=== PATIENT | male | born 1980 | race Caucasian/White ===

== ENCOUNTER 2021-03-04 11:06 | Outpatient (REF) | payer BC, SELFPAY ==
--- NOTE | ~2021-03-04 | XR_ITS ---
EXAMINATION: XR FOOT, RIGHT CLINICAL INFORMATION: Pain COMPARISON: None TECHNIQUE: AP, lateral, and oblique views of the right foot. FINDINGS: Bone alignment is normal. No fracture or dislocation is seen. Joint spaces are normal. There is a small osteophyte at the Achilles tendon insertion to the calcaneus. XR/XR foot RT min 3V IMPRESSION: Small calcaneal osteophyte at the Achilles tendon insertion otherwise unremarkable exam.
[2021-03-04 13:56] LABS: MANUAL DIFF FLAG NO
[2021-03-04 14:03] LABS: Basophils Absolute Auto 0.1 X10*3/uL (0.0-0.2); Basophils Percent Auto 0.6 % (0-2); Eosinophils Absolute Auto 0.3 X10*3/uL (0.0-0.4); Eosinophils Percent Auto 3.4 % (0-4); Hematocrit 46.9 % (42-52); Hemoglobin 15.8 g/dl (14.0-18.0); Imm Gran Abs Auto 0.03 X10*3/uL (0.00-0.03); Imm Gran Pct Auto 0.4 % (0.0-0.4); Lymphocytes Absolute Auto 2.1 X10*3/uL (1.2-4.9); Lymphocytes Percent Auto 25.2 % (20-40); Mean Corpuscular HGB Conc 33.7 g/dl (31.0-36.0); Mean Corpuscular Hemoglobin 31.2 pg (27.0-33.0); Mean Corpuscular Volume 92.5 fL (80-98); Mean Platelet Volume 10.4 fL (9.4-12.4); Monocytes Absolute Auto 0.8 X10*3/uL (0.1-1.2); Monocytes Percent Auto 9.2 % (2-11); Neutrophils Absolute Auto 5.2 X10*3/uL (2.0-8.3); Neutrophils Percent Auto 61.2 % (45-73); Platelet Count 234 X10*3/uL (160-400); Red Blood Count 5.07 X10*6/uL (4.60-5.80); Red Cell Distribution Width 13.4 % (11.0-16.0); White Blood Count 8.5 X10*3/uL (4.8-10.8)
[2021-03-04 14:19] LABS: Anion Gap 13 (12-20); Blood Urea Nitrogen 12 mg/dL (9-16); Calcium 9.8 mg/dL (8.4-10.2); Carbon Dioxide 28 mmol/L (22-29); Chloride 102 mmol/L (96-108); Estimated Glomerular Filt Rate > 60; Glucose Random 85 mg/dL (60-115); Potassium 4.4 mmol/L (3.3-5.1); Sodium 139 mmol/L (135-145); Uric Acid 9.8 mg/dL (3.4-7.0)
[2021-03-04 15:14] LABS: Erythrocyte Sedimentation Rate 4 MM/HR (0-15)
== END 2021-03-04 11:07 | disposition home or self-care (01) ==
LOC: HO.HMGCX 11:06
PROVIDERS: PCP Internal Medicine; Visit Provider Nurse Practitioner Family
DX: M79.673 Pain in unspecified foot (principal); M79.89 Other specified soft tissue disorders; L53.9 Erythematous condition, unspecified
CPT/HCPCS: 36415; 73630; 80048; 84550; 85025; 85652

== ENCOUNTER 2023-05-20 08:13 | Outpatient (AMB) | payer BC, SELFPAY ==
[2023-05-20 08:34] VITALS: BP 148/90; PULSE 91; TEMP 36.4; O2SAT 98; BMI 33.1
--- NOTE | 2023-05-20 08:34 | AM.OFFWIN_ITS ---
Intake Vital Signs 05/20/23 08:34 Height 5 ft 11 in Weight 237 lb BMI 33.1 BP 148/90 H Blood Pressure Location Lt brachial Position Sitting Pulse 91 Pulse Source Pulse Oximeter Temp 97.5 F Temp Source Temporal Artery Scan Pulse Oximetry (%) 98 Oxygen Delivery Method Room Air Intake Visit Reasons: EP RT?Gout Intake Note: pt is here for c/o gout right foot Patient Tobacco Use Status: Current everyday Tobacco user Allergies No Known Allergies Allergy (Verified 05/20/23 08:37) Do you need a note to return to daycare/school/sports/work: Yes HPI EP RT?Gout HPI Details 42-year-old male patient presents today with possible gout right foot. Reports this is his 4th flare in the last year so. Symptoms started about 2 days ago. No injury or trauma to area. Reports tenderness and warmth on the top of right foot. Denies any fever or chills. States he always gets a flare in the same spot. [facility] Medical History Otitis media Family History Father Diabetes Mother No problems noted. Social History Patient Tobacco Use Status: Current everyday Tobacco user Review of Systems Const All systems reviewed & are unremarkable except as noted in HPI and below Physical Exam Vital Signs: Last Vital Signs Temp 97.5 F 05/20/23 08:34 Pulse 91 05/20/23 08:34 BP 148/90 H 05/20/23 08:34 Pulse Ox 98 05/20/23 08:34 Oxygen Delivery Method Room Air 05/20/23 08:34 BMI result Body Mass Index 33.1 Const General: cooperative and healthy appearing Resp Effort & Inspection: normal respiratory effort and able to speak in complete sentences Auscultation: clear to auscultation bilaterally Cardio Jugular venous distension: no JVD Palpation: normal PMI Rate: regular rate Rhythm: regular rhythm Skin General skin exam: no rashes or lesions noted Extrem Other: Top of right foot erythematous, tender to palpation, slight warmth to touch. General: Yes capillary refill normal and Yes no clubbing, cyanosis or edema Psych Appearance: grossly normal Mental Status: mental status grossly normal Speech and movement: Normal speech and movement present Assessment & Plan Assessment & Plan (1) Gout of right foot: Code(s): M10.9 - Gout, unspecified Qualifiers: Gout etiology: unspecified cause Chronicity: acute Qualified Code(s): M10.9 - Gout, unspecified Plan: Prednisone for gout flare of right foot. Reviewed indications, use, and possible side effects of this medication. Patient reports he has taken it previously and it has treated his gout flares effectively. May apply cool compresses as needed. Advised to return to the he does not improve with treatment. I will message his PCP Dr. Sanchez for possible start on gout prophylaxis given multiple flares over the last year. Patient agrees to plan. Medications: Refilled prednisone 40 mg (2 x 20 mg) PO DAILY 10 tabs 0RF 5 days M10.9 - Gout, unspecified Coding Level of Care Code Est Pt Level 3 (76470) Diagnoses Acute gout of right foot, unspecified cause M10.9 Gout etiology: unspecified cause Chronicity: acute
== END 2023-05-20 09:15 | disposition home or self-care (01) ==
PROVIDERS: PCP Internal Medicine; Visit Provider Nurse Practitioner Family
DX: M10.9 Gout, unspecified (principal)
CPT/HCPCS: 99213

== ENCOUNTER 2023-06-07 06:01 | Outpatient (REF) | payer BC, SELFPAY ==
[2023-06-07 12:06] LABS: MANUAL DIFF FLAG NO
[2023-06-07 12:13] LABS: Basophils Absolute Auto 0.1 X10*3/uL (0.0-0.2); Basophils Percent Auto 0.9 % (0-2); Eosinophils Absolute Auto 0.3 X10*3/uL (0.0-0.4); Eosinophils Percent Auto 5.1 % (0-4); Hematocrit 45.6 % (42.0-52.0); Hemoglobin 15.4 g/dl (14.0-18.0); Imm Gran Abs Auto 0.02 X10*3/uL (0.00-0.03); Imm Gran Pct Auto 0.3 % (0.0-0.4); Lymphocytes Percent Auto 46.3 % (20-40); Mean Corpuscular HGB Conc 33.8 g/dl (31.0-36.0); Mean Corpuscular Volume 94.6 fL (80.0-98.0); Mean Platelet Volume 10.5 fL (9.4-12.4); Monocytes Absolute Auto 0.5 X10*3/uL (0.1-1.2); Monocytes Percent Auto 7.9 % (2-11); Neutrophils Absolute Auto 2.5 x10*3/uL (2.0-8.3); Neutrophils Percent Auto 39.5 % (45-73); Platelet Count 241 X10*3/uL (160-400); Red Blood Count 4.82 X10*6/uL (4.60-5.80); Red Cell Distribution Width 12.8 % (11.0-16.0); White Blood Count 6.4 X10*3/uL (4.8-10.8)
[2023-06-07 12:40] LABS: Alanine Aminotransferase 45 U/L (0-40); Albumin Level 4.3 g/dL (3.5-5.0); Alkaline Phosphatase 76 U/L (39-117); Anion Gap 15 (12-20); Aspartate Amino Transferase 27 U/L (5-37); Bilirubin Total 0.2 mg/dL (0.0-1.0); Blood Urea Nitrogen 10 mg/dL (9-16); Calcium 9.6 mg/dL (8.4-10.2); Carbon Dioxide 25 mmol/L (22-29); Chloride 106 mmol/L (96-108); Cholesterol 231 mg/dL (<200); Estimated Glomerular Filt Rate > 60; Glucose Fasting 85 mg/dL (60-99); HDL Cholesterol 52 mg/dL (>40); LDL Cholesterol Calculated 134 mg/dL (<100); Potassium 3.8 mmol/L (3.3-5.1); Sodium 142 mmol/L (135-145); Total Protein 7.2 g/dL (6.5-8.0); Triglycerides 228 mg/dL (<150); Uric Acid 9.3 mg/dL (3.4-7.0)
== END 2023-06-07 06:02 | disposition home or self-care (01) ==
LOC: HO.HMGCLDS 06:01
PROVIDERS: PCP Internal Medicine; Visit Provider Internal Medicine
DX: Z00.00 Encounter for general adult medical examination without abnormal findings (principal); M10.9 Gout, unspecified
CPT/HCPCS: 36415; 80053; 80061; 84550; 85025

== ENCOUNTER 2023-06-09 09:08 | Outpatient (AMB) | payer BC, SELFPAY ==
[2023-06-09 09:26] VITALS: BP 126/76; PULSE 94; O2SAT 96; BMI 32.1
--- NOTE | 2023-06-09 09:26 | A.OFFPC_ITS ---
Vital Signs 06/09/23 09:26 Height 5 ft 11 in Weight 230 lb BMI 32.1 BP 126/76 Blood Pressure Location Lt brachial Position Sitting Pulse 94 Pulse Source Pulse Oximeter Pulse Oximetry (%) 96 Oxygen Delivery Method Room Air Intake Visit Reasons: PE Intake Note: Pt is here today for PE. Allergies No Known Allergies Allergy (Verified 06/09/23 09:31) Medication List - Last Reconciled 06/09/23 by Prisca Sanchez MD No Known Home Meds Tobacco use date assessed: 06/09/23 Dental Screening Dental Screen Date: 06/09/23 Did you have a dental visit in the last 12 months?: Yes Did you have a dental problem in the last 6 months where you did not have access to dental care?: No Was dental information given to patient?: Patient has dentist HPI PE HPI Details Patient presents for physical. He complains of recurrent episodes of gout attacks for the last few months. He was treated with prednisone. Patient reports strong family history of gout. [facility] Medical History Otitis media Family History Father Diabetes Mother No problems noted. Social History (Updated 06/09/23 @ 10:26 by Prisca Sanchez MD) Household Members Other:: , 2 daughters 18, 17, works for [employer] company Housing: Apartment Patient Tobacco Use Status: Current everyday Tobacco user Cigarettes Per Day: 20 e-Cigarette/Vaping Use: Never Used Current occupational status: employed Cognitive needs: No Hearing needs: No Vision needs: Yes Questionnaire PHQ-9 Over the last 2 weeks, how often have you been bothered by any of the following problems? 1. Little interest or pleasure in doing things: not at all 2. Feeling down, depressed, or hopeless: not at all 3. Trouble falling or staying asleep, or sleeping too much: not at all 4. Feeling tired or having little energy: not at all 5. Poor appetite or overeating: not at all 6. Feeling bad about yourself - or that you are a failure or have let yourself or your family down: not at all 7. Trouble concentrating on things, such as reading the newspaper or watching television: not at all 8. Moving or speaking so slowly that other people could have noticed. Or the opposite - being so fidgety or restless that you have been moving around a lot more than usual: not at all 9. Thoughts that you would be better off or of hurting yourself in some way: not at all Total score: 0 Depression Screening Interpretation: Negative Depression Screening Done: Yes Source: Developed by Drs. Jose Ramon Pinon, Daphne Dixon, Trever Han and colleagues, with an educational shakila from [employer]. Thrive Questionnaire Date Thrive assessed: 06/09/23 I am a: Patient What is your living situation today?: I have a steady place to live Within the past 12 months, did the food you bought not last and you didn't have the money to get more?: Never true Within the past 12 months, did you worry whether your food would run out before you got money to buy more?: Never true Do you have trouble paying for medicines?: No Do you have trouble getting transportation to medical appointments?: No Do you have trouble paying your heating and electricity bill?: No Do you have trouble taking care of your child, family member or friend?: No Do you have trouble with day-to-day activities such as bathing, preparing meals, shopping, managing finances, etc.?: No Are you currently unemployed and looking for a job?: No Are you interested in more education?: No Please select the resources that you would like help with: None Currently or been in a relationship where the following occur: no concerns reported AUDIT C Alcohol Use Questionnaire (AUDIT-C) 1. How often do you have a drink containing alcohol?: 4 or more times a week 2. How many drinks containing alcohol do you have on a typical day when you are drinking?: 1 or 2 3. How often do you have six or more drinks on one occasion?: Never Total Score: 4 OTF-7 AMB Questionnaire OTF-7 Date OTF - 7 assessed: 06/09/23 Feeling nervous, anxious, or on edge: 0 = Not at all Not being able to stop or control worryin = Not at all Worrying too much about different things: 0 = Not at all Trouble relaxin = Not at all Being so restless that it is hard to sit still: 0 = Not at all Becoming easily annoyed or irritable: 0 = Not at all Feeling afraid as if something awful might happen: 0 = Not at all Total OTF-7 score (0-4 normal; 5-9 mild; 10-14 moderate; 15-21 severe): 0 Source: Developed by Drs. Jose Ramon Pinon, Daphne Dixon, Trever Han and colleagues, with an educational shakila from [employer]. Review of Systems Const All systems reviewed & are unremarkable except as noted in HPI and below Reports no additional complaints Eyes Reports no additional complaints ENT Reports no additional complaints Card Reports no additional complaints Resp Reports no additional complaints GI Reports no additional complaints Reports no additional complaints Physical exam (Primary Care) Vital Signs: Last Vital Signs Pulse 94 06/09/23 09:26 BP 126/76 06/09/23 09:26 Pulse Ox 96 06/09/23 09:26 Oxygen Delivery Method Room Air 06/09/23 09:26 BMI result Body Mass Index 32.1 Tobacco/Smoking Status: Tobacco use Status Tobacco use date assessed 06/09/23 06/09/23 09:34 Patient Tobacco Use Status Current everyday Tobacco 06/09/23 09:34 e-Cigarette/Vaping Use Never Used 06/09/23 09:34 PHQ-9: PHQ-9 Score PHQ-9: Total score 0 06/09/23 09:35 Depression Screening Interpretation: Negative Thrive Assessment: Date of Thrive Assessment Date Thrive assessed 06/09/23 06/09/23 09:35 Currently or been in a relationship where the following occur: no concerns reported Const General: no acute distress HENMT Ears: hearing grossly normal bilaterally Face and sinus: Yes normal facial exam Mouth: Normal oral and palatal mucosa present Throat: Yes posterior oropharynx normal Eyes General: appearance normal, both eyes and all related structures Neck Neck: Yes no lymphadenopathy and Yes supple Resp Effort & Inspection: normal respiratory effort Auscultation: clear to auscultation bilaterally Cardio Rhythm: regular rhythm Heart sounds: S1 normal heart sound present and S2 normal heart sound present GI Inspection: Yes normal to inspection Palpation (GI): Soft to palpation Percussion: Yes normal to percussion Auscultation: normal bowel sounds Assessment and Plan Assessment & Plan (1) Gout: Code(s): M10.9 - Gout, unspecified Plan: For recurrent gout and hyperuricemia allopurinol to 200 mg daily will be started with colchicine 0.6 mg daily for the 1st month as a prophylaxis. Low purine diet discussed with the patient. He was advised to take colchicine 0.6 mg q.i.d. for acute gout attack (2) Annual physical exam: Code(s): Z00.00 - Encounter for general adult medical examination without abnormal findings Plan: Well-balanced diet regular physical activity discussed with the patient. Tobacco quitting discussed (3) Hyperlipemia: Code(s): E78.5 - Hyperlipidemia, unspecified Plan: Low-cholesterol diet discussed with the patient return in 4 months with a fasting labs before including lipid profile Orders: Orders Lipid Panel 4 Months E78.5 - Hyperlipidemia, unspecified, M10.9 - Gout, unspecified, Z00.00 - Encounter for general adult medical examination without abnormal findings Comprehensive [place]. Panel Fast 4 Months E78.5 - Hyperlipidemia, unspecified, M10.9 - Gout, unspecified, Z00.00 - Encounter for general adult medical examination without abnormal findings Uric Acid 4 Months M10.9 - Gout, unspecified Medications: New allopurinol 200 mg PO DAILY 90 tabs 1RF colchicine (gout) 0.6 mg PO QID PRN 60 tabs 4RF gout attack Coding Level of Care Code Est Pt Prev Care 40-64y(03691) Diagnoses Gout M10.9 Annual physical exam Z00.00 Hyperlipemia E78.5
== END 2023-06-09 10:29 | disposition home or self-care (01) ==
PROVIDERS: PCP Internal Medicine; Visit Provider Internal Medicine
DX: M10.9 Gout, unspecified (principal); Z00.00 Encounter for general adult medical examination without abnormal findings; E78.5 Hyperlipidemia, unspecified
CPT/HCPCS: 99396

== ENCOUNTER 2023-06-29 08:07 | Outpatient (AMB) | payer BC, SELFPAY ==
[2023-06-29 08:08] VITALS: BP 122/78; PULSE 102; TEMP 36.9; O2SAT 98; BMI 31.2
--- NOTE | 2023-06-29 08:08 | MHC.OFFWIV ---
Intake Vital Signs 06/29/23 08:08 Height 5 ft 11 in Weight 224 lb BMI 31.2 BP 122/78 Blood Pressure Location Rt brachial Position Sitting Pulse 102 H Pulse Source Pulse Oximeter Temp 98.4 F Temp Source Temporal Artery Scan Pulse Oximetry (%) 98 Oxygen Delivery Method Room Air Intake Visit Reasons: EP stuffy nose/body aches masked in lobby Intake Note: pt is here for c/o stuffy nose, body aches Patient Tobacco Use Status: Current everyday Tobacco user Allergies No Known Allergies Allergy (Verified 06/29/23 08:33) Medication List - Last Reconciled 06/29/23 by Michael Brito MD allopurinol 200 mg PO DAILY colchicine (gout) 0.6 mg PO QID PRN Do you need a note to return to daycare/school/sports/work: Yes HPI EP stuffy nose/body aches masked in lobby HPI Details Patient presents for a sick visit. Reporting symptoms of sinus congestion, sore throat and difficulty swallowing. Low-grade fever. No family member is sick. No recent travel. Patient reports symptoms of malaise and fatigue. [facility] Medical History Otitis media Family History Father Diabetes Mother No problems noted. Social History (Updated 06/09/23 @ 10:26 by Prisca Sanchez MD) Household Members Other:: , 2 daughters 18, 17, works for [employer] company Housing: Apartment Patient Tobacco Use Status: Current everyday Tobacco user Cigarettes Per Day: 20 e-Cigarette/Vaping Use: Never Used Current occupational status: employed Cognitive needs: No Hearing needs: No Vision needs: Yes Physical Exam Vital Signs: Last Vital Signs Temp 98.4 F 06/29/23 08:08 Pulse 102 H 06/29/23 08:08 BP 122/78 06/29/23 08:08 Pulse Ox 98 06/29/23 08:08 Oxygen Delivery Method Room Air 06/29/23 08:08 BMI result Body Mass Index 31.2 Const General: cooperative and healthy appearing Nutritional Appearance: well nourished Orientation/consciousness: patient oriented x3 Limitations: no limitations HEENT Head: Yes normal to inspection Eyes General: appearance normal, both eyes and all related structures Neck Neck: Yes normal visual inspection Chest Chest palpation & inspection: normal palpation of entire chest wall Resp Effort & Inspection: normal respiratory effort Neuro General: patient oriented x3 Assessment & Plan Assessment & Plan (1) Upper respiratory tract infection: Code(s): J06.9 - Acute upper respiratory infection, unspecified Plan: Antibiotics ordered. Increase fluid intake. Tylenol for aches and pains. If symptoms worsen, follow-up here for a recheck. Coding Level of Care Code Est Pt Level 3 (38999) Diagnoses Upper respiratory tract infection J06.9
== END 2023-06-29 08:42 | disposition home or self-care (01) ==
PROVIDERS: PCP Internal Medicine; Visit Provider Internal Medicine
DX: J06.9 Acute upper respiratory infection, unspecified (principal)
CPT/HCPCS: 99213

== ENCOUNTER 2023-06-29 09:34 | Outpatient (REF) | payer BC, SELFPAY ==
[2023-06-29 15:04] LABS: Influenza A PCR NEGATIVE (Negative); Influenza B PCR NEGATIVE (Negative); Resp Syncy Virus RNA Qual PCR NEGATIVE (Negative); SARS COV2 PCR INHOUSE NEGATIVE (Negative)
== END 2023-06-29 09:35 | disposition home or self-care (01) ==
LOC: HO.LAB 09:34
PROVIDERS: Visit Provider Internal Medicine
DX: Z11.52 Encounter for screening for COVID-19 (principal); Z20.822 Contact with and (suspected) exposure to COVID-19; R43.9 Unspecified disturbances of smell and taste
CPT/HCPCS: 0241U

== ENCOUNTER 2023-08-21 09:12 | Outpatient (AMB) | payer BC, SELFPAY ==
--- NOTE | 2023-08-21 10:02 | AM.OFFWIN_ITS ---
Intake Vital Signs 08/21/23 10:05 Height 5 ft 11 in Weight 230 lb BMI 32.1 BP 140/98 H Blood Pressure Location Rt brachial Position Sitting Pulse 86 Pulse Source Pulse Oximeter Pulse Oximetry (%) 97 Oxygen Delivery Method Room Air Intake Visit Reasons: EP gout RT foot Intake Note: Pain here for gout of right foot which started and has been taking aleeve and icing which does not help. He states he gets every 3-4 months. Patient Tobacco Use Status: Current everyday Tobacco user Allergies No Known Allergies Allergy (Verified 08/28/23 10:47) Do you need a note to return to daycare/school/sports/work: Yes HPI EP gout RT foot HPI Details Patient is a 43-year-old male comes to the walk-in clinic complaining of ain here for gout of right foot which started and has been taking alieve and icing which does not help. His flare-ups have been more recurrent recently, and this is his 5th within the last year or so. He is going on 3 days, with only minimal relief with [id number] anti-inflammatories. He denies acute injury or trauma, although he states that he is on his feet repetitively with his work duties at a [employer]. His flare-ups always recur on the right anterior midfoot, and are severe today in regards to swelling per patient. He denies fever or chills, malaise or myalgias, weakness, or other symptoms of infection or systemic symptoms. [facility] Medical History Otitis media Family History Father Diabetes Mother No problems noted. Social History Household Members Other:: , 2 daughters 18, 17, works for [employer] Housing: Apartment Patient Tobacco Use Status: Current everyday Tobacco user Cigarettes Per Day: 20 e-Cigarette/Vaping Use: Never Used Current occupational status: employed Cognitive needs: No Hearing needs: No Vision needs: Yes Review of Systems Const All systems reviewed & are unremarkable except as noted in HPI and below Physical Exam Vital Signs: Last Vital Signs Pulse 86 08/21/23 10:05 BP 140/98 H 08/21/23 10:05 Pulse Ox 97 08/21/23 10:05 Oxygen Delivery Method Room Air 08/21/23 10:05 BMI result Body Mass Index 32.1 Const General: cooperative, healthy appearing, no acute distress, alert, awake, Physically active, in distress and well groomed; No comfortable, anxious, diaphoretic, ill appearing, intoxicated appearing, poor hygiene or tired appearing Nutritional Appearance: average body habitus Orientation/consciousness: patient oriented x3 Limitations: no limitations Resp Effort & Inspection: normal respiratory effort Cardio Rate: regular rate Neuro General: patient oriented x3 Extrem Other: Tenderness, mild edema to the right midfoot, with no appreciable warmth or erythema. No induration or fluctuance. He has limited ROM due to the pain, and mildly antalgic gait. Psych Appearance: grossly normal Mental Status: mental status grossly normal Speech and movement: Normal speech and movement present Affect: normal affect Attitude: cooperative Thought process: Normal thought process present Insight: Good insight present (Psych) Judgement: Good judgement present (Psych) Assessment & Plan Assessment & Plan (1) Gout attack: Code(s): M10.9 - Gout, unspecified Qualifiers: Gout site: foot Gout etiology: unspecified cause Laterality: left Qualified Code(s): M10.9 - Gout, unspecified Plan 43 year old male with diagnosed gout having an acute goute flare up to the right foot. No septic joint features other than edema to the joint. We discussed factors that provoke gout flares, and he is aware that alcohol consumption as well as heavy protein/meat consumption will flare-up his symptoms. He states that he is trying to do better . He has not been able to start a prophylaxis for this, and his appointment with his PCP is not until October 07. His uric acid level is not been checked since May of last year, and was at 9.3 at that time. He has not been able to lower it with minimal lifestyle (diet modification) changes. I will start him on a course of prednisone, which has resolved his symptoms in the past, and I will start him on allopurinol today. We discussed that he should get his uric acid level checked just prior to his PCP appointment, and have his labs checked. He already has order in the system. He knows to follow up sooner if his symptoms worsen, including specifically increased pain and edema or redness or warmth starting to the affected area, other infectious symptoms of fever chills, weakness, dizziness, nausea vomiting, or other worrisome symptoms. He knows to go to the emergency department if that is the case. Medications: New allopurinol 100 mg PO DAILY 30 tabs 1RF prednisone 40 mg (2 x 20 mg) PO DAILY 10 tabs 0RF 5 days Coding Level of Care Code Est Pt Level 4 (33106) Diagnoses Acute gout of left foot, unspecified cause M10.9 Gout site: foot Gout etiology: unspecified cause Laterality: left
[2023-08-21 10:05] VITALS: BP 140/98; PULSE 86; O2SAT 97; BMI 32.1
== END 2023-08-21 11:02 | disposition home or self-care (01) ==
PROVIDERS: PCP Internal Medicine; Visit Provider Physician Assistant Medical
DX: M10.9 Gout, unspecified (principal)
CPT/HCPCS: 99214

== ENCOUNTER 2023-08-28 09:15 | Outpatient (AMB) | payer BC, SELFPAY ==
--- NOTE | 2023-08-28 10:06 | AM.OFFWIN_ITS ---
Intake Vital Signs 08/28/23 10:16 Height 5 ft 11 in Weight 230 lb BMI 32.1 BP 130/80 Blood Pressure Location Rt brachial Position Sitting Pulse 82 Pulse Source Pulse Oximeter Temp 98.0 F Temp Source Oral Pulse Oximetry (%) 98 Oxygen Delivery Method Room Air Intake Visit Reasons: EST/gout right leg Intake Note: pt is here for c.o gout on right leg, was seen in walk in clinic last week and medications hasnt helped Patient Tobacco Use Status: Current everyday Tobacco user Allergies No Known Allergies Allergy (Verified 08/28/23 10:47) Medication List - Last Reconciled 08/28/23 by Yamileth Carlisle CNP allopurinol 100 mg PO DAILY Do you need a note to return to daycare/school/sports/work: Yes HPI HPI Comments History of Present Illness Details 43-year-old male presents to walk-in [facility] for complaint of pain right foot, was treated for gout last week for his 5th time with Allupurinol and Prednisone with no relief. He also is c/o right knee pain, swelling and erythema. He continues to drink alcohol but endorses I am done now, my and I know I can no longer drink He has completed his full dose of Prednisone, and has only taken 2 days of his Allupurinol RX. He has had no reported relief of pain or swelling of left anterior midfoot, and now has new onset erythema, swelling and pain of his right knee. He works for a [employer] service, and denies injury, trauma, fever, chills, weakness, dizziness, CP, SOB, nausea, changes in bowels or bladder. [facility] Medical History Otitis media Family History Father Diabetes Mother No problems noted. Social History Household Members Other:: , 2 daughters 18, 17, works for [employer] company Housing: Apartment Patient Tobacco Use Status: Current everyday Tobacco user Cigarettes Per Day: 20 e-Cigarette/Vaping Use: Never Used Current occupational status: employed Cognitive needs: No Hearing needs: No Vision needs: Yes Review of Systems Const All systems reviewed & are unremarkable except as noted in HPI and below Physical Exam Vital Signs: Last Vital Signs Temp 98.0 F 08/28/23 10:16 Pulse 82 08/28/23 10:16 BP 130/80 08/28/23 10:16 Pulse Ox 98 08/28/23 10:16 Oxygen Delivery Method Room Air 08/28/23 10:16 BMI result Body Mass Index 32.1 Const General: healthy appearing and well developed Orientation/consciousness: patient oriented x3 Limitations: no limitations Resp Effort & Inspection: normal respiratory effort, no cough, no respiratory distress and not tachypneic Auscultation: clear to auscultation bilaterally Cardio Rate: regular rate Rhythm: regular rhythm Peripheral pulses: Peripheral pulses 2+ throughout Neuro General: patient oriented x3, gait normal, moves all extremities and no focal motor deficits Extrem Right lower extremity: normal capillary refill, knee (moderate erythema, +1 edema, tender to palpitation, slight warmth to touch) and foot (Right mid anterior foot, mild erythema, tender and slight warmth to touch); no cyanosis Psych Mental Status: mental status grossly normal Speech and movement: Clear speech present Affect: normal affect Attitude: cooperative Assessment & Plan Assessment & Plan (1) Chronic gout of right foot: Code(s): M1A.0710 - Idiopathic chronic gout, right ankle and foot, without tophus (tophi) Qualifiers: Gout etiology: other secondary cause Presence of tophus: without tophus Qualified Code(s): M1A.4710 - Other secondary chronic gout, right ankle and foot, without tophus (tophi) Plan: -- Will restart Prednisone for gout flare of right foot, and possible right knee. Reviewed indications, use, and possible side effects of this medication. Patient reports he has taken it previously and it has treated his gout flares effectively. May apply cool compresses as needed. -- Will discontinue allupurinol and start Cochicine; we discussed the risks of Colchicine in patients at risk for hepatic or renal impairment especially with hx of AUD, review of his most recent CMP from 06/07/23 indicate Uric Acid level of 9.3 significantly elevated, LFT's; ALT slightly elevated at 45, AST wnl at 27, and BUN/Creat wnl at 10-0.83, with Normal GFR of > 60. At this point the benefits of adding Colchicine outweigh the risks, will add Cochicine, and encouraged patient to abstain alcohol use, and f/u with PCP. -- We discussed factors that provoke gout flares, and he is aware that alcohol consumption as well as heavy protein/meat consumption will flare-up his symptoms. He states that he is trying to do better. He has not been able to start a prophylaxis for this, and his appointment with his PCP is not until October 07. His uric acid level is not been checked since May of 2023, and was at 9.3. He has not been able to reduce his uric acid level with is minimal diet/lifestyle changes. So I will start him on Prednisone, and Colchicine today, and we discussed that he should get his uric acid level checked, and his Chem panel checked just prior to his PCP appointment. He already has order in the system. -- He knows to follow up sooner if his symptoms worsen, including specifically infectious symptoms of fever chills, weakness, dizziness, nausea vomiting, or other significant associated symptoms. (2) Acute gout of right knee: Code(s): M10.9 - Gout, unspecified Qualifiers: Gout etiology: unspecified cause Qualified Code(s): M10.9 - Gout, unspecified Plan: -- Will restart Prednisone for gout flare of right foot, and possible right knee. Reviewed indications, use, and possible side effects of this medication. Patient reports he has taken it previously and it has treated his gout flares effectively. May apply cool compresses as needed. -- Will discontinue allupurinol and start Cochicine; we discussed the risks of Colchicine in patients at risk with hepatic or renal impairment especially with hx of AUD, review of his most recent CMP from 06/07/23 indicate Uric Acid level of 9.3 significantly elevated, LFT's, ALT slightly elevated at 45, AST wnl at 27, and BUN/Creat wnl at 10-0.83, with Normal GFR of > 60. At this point the benefits of adding Colchicine outweigh the risks, will add Cochicine, and encouraged to abstain alcohol use, and f/u with PCP. -- We discussed factors that provoke gout flares, and he is aware that alcohol consumption as well as heavy protein/meat consumption will flare-up his symptoms. He states that he is trying to do better. He has not been able to start a prophylaxis for this, and his appointment with his PCP is not until October 07. His uric acid level is not been checked since May of 2023, and was at 9.3. He has not been able to reduce his uric acid level with is minimal diet/lifestyle changes. So I will start him on Prednisone, and Colchicine today, and we discussed that he should get his uric acid level checked, and his Chem panel checked just prior to his PCP appointment. He already has order in the system. -- He knows to follow up sooner if his symptoms worsen, including specifically infectious symptoms of fever chills, weakness, dizziness, nausea vomiting, or other significant associated symptoms. 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
[2023-08-28 10:16] VITALS: BP 130/80; PULSE 82; TEMP 36.7; O2SAT 98; BMI 32.1
== END 2023-08-28 11:06 | disposition home or self-care (01) ==
PROVIDERS: PCP Internal Medicine; Visit Provider Nurse Practitioner Acute Care
DX: M1A.4710 Other secondary chronic gout, right ankle and foot, without tophus (tophi) (principal)
CPT/HCPCS: 99214

== ENCOUNTER 2023-10-08 07:27 | Outpatient (REF) | payer BC, SELFPAY ==
[2023-10-08 11:42] LABS: Alanine Aminotransferase 31 U/L (0-40); Albumin Level 4.4 g/dL (3.5-5.0); Alkaline Phosphatase 77 U/L (39-117); Anion Gap 13 (12-20); Aspartate Amino Transferase 26 U/L (5-37); Bilirubin Total 0.5 mg/dL (0.0-1.0); Blood Urea Nitrogen 12 mg/dL (9-16); Carbon Dioxide 25 mmol/L (22-29); Chloride 109 mmol/L (96-108); Cholesterol 209 mg/dL (<200); Estimated Glomerular Filt Rate > 60; Glucose Fasting 89 mg/dL (60-99); HDL Cholesterol 55 mg/dL (>40); LDL Cholesterol Calculated 141 mg/dL (<100); Potassium 3.9 mmol/L (3.3-5.1); Sodium 143 mmol/L (135-145); Total Protein 7.2 g/dL (6.5-8.0); Triglycerides 69 mg/dL (<150); Uric Acid 8.1 mg/dL (3.4-7.0)
== END 2023-10-08 07:28 | disposition home or self-care (01) ==
LOC: HO.HMGCLDS 07:27
PROVIDERS: PCP Internal Medicine; Visit Provider Internal Medicine
DX: Z00.00 Encounter for general adult medical examination without abnormal findings (principal); M10.9 Gout, unspecified; E78.5 Hyperlipidemia, unspecified
CPT/HCPCS: 36415; 80053; 80061; 84550

== ENCOUNTER 2024-02-28 08:23 | Outpatient (AMB) | payer OTHER, SELFPAY ==
--- NOTE | 2024-02-28 08:32 | AM.OFFWIN_ITS ---
Intake Vital Signs 02/28/24 08:33 Height 5 ft 11 in Weight 220 lb BMI 30.7 BP 164/108 H Blood Pressure Location Rt brachial Position Sitting Pulse 99 Pulse Source Pulse Oximeter Temp 98.5 F Temp Source Oral Pulse Oximetry (%) 98 Oxygen Delivery Method Room Air Intake Visit Reasons: EP LT Foot gout Intake Note: pt here c/o LT foot gout. Started Wednesday. Patient Tobacco Use Status: Current everyday Tobacco user Allergies No Known Allergies Allergy (Verified 02/28/24 08:59) Medication List - Last Reconciled 02/28/24 by Michael Brito MD No Known Home Meds Do you need a note to return to daycare/school/sports/work: Yes HPI EP LT Foot gout HPI Details 43 yr old male presents to the office fo r a sick visit. Patient is complaining of left foot pain for the past few days. He has been bin ging on alcohol and admits to have a poor diet. Pain is predominantly in the fore foot and ankle. Progressively getting worse. Using a crutch to walk. [facility] Medical History Otitis media Family History Father Diabetes Mother No problems noted. Social History Household Members Other:: , 2 daughters 18, 17, works for [employer] company Housing: Apartment Patient Tobacco Use Status: Current everyday Tobacco user Cigarettes Per Day: 20 e-Cigarette/Vaping Use: Never Used Current occupational status: employed Cognitive needs: No Hearing needs: No Vision needs: Yes Physical Exam Vital Signs: Last Vital Signs Temp 98.5 F 02/28/24 08:33 Pulse 99 02/28/24 08:33 BP 164/108 H 02/28/24 08:33 Pulse Ox 98 02/28/24 08:33 Oxygen Delivery Method Room Air 02/28/24 08:33 BMI result Body Mass Index 30.7 Extrem Other: Left foot: Swelling over the ankle, and dorsum of the foot. Increased warmth. Marked tenderness on palpation. Assessment & Plan Assessment & Plan (1) Gout: Code(s): M10.9 - Gout, unspecified Qualifiers: Gout site: foot Encounter type: subsequent encounter Laterality: right Presence of tophus: without tophus Plan: Indomethacin for ten days. 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 He will pursue this with the PCP. Coding Level of Care Code Est Pt Level 3 (40803) Diagnoses Gout M10.9 Gout site: foot Encounter type: subsequent encounter Laterality: right Presence of tophus: without tophus
[2024-02-28 08:33] VITALS: BP 164/108; PULSE 99; TEMP 36.9; O2SAT 98; BMI 30.7
== END 2024-02-28 09:28 | disposition home or self-care (01) ==
PROVIDERS: PCP Internal Medicine; Visit Provider Internal Medicine
DX: M10.9 Gout, unspecified (principal)
CPT/HCPCS: 99213

== ENCOUNTER 2024-12-28 08:00 | Outpatient (AMB) | payer OTHER, SELFPAY ==
--- NOTE | 2024-12-28 08:03 | MHC.OFFWIV ---
Intake Vital Signs 12/28/24 08:08 Height 5 ft 11 in Weight 234 lb BMI 32.6 BP 140/80 H Blood Pressure Location Rt brachial Position Sitting Pulse 101 H Pulse Source Pulse Oximeter Pulse Oximetry (%) 98 Oxygen Delivery Method Room Air Intake Visit Reasons: EP Gout RT foot Intake Note: Patient here for right foot gout that started Wednesday morning. Patient Tobacco Use Status: Current everyday Tobacco user Allergies No Known Allergies Allergy (Verified 12/28/24 08:10) Do you need a note to return to daycare/school/sports/work: Yes HPI HPI Comments History of Present Illness Details 44 y/o Male patient who presents to the walk in clinic with c/o Right Foot pain and swelling since Wednesday. H/o Chronic Gout related to drinking and Poor food choices. He does endorse poor eating choices and binge drinking. [facility] Medical History Otitis media Family History Father Diabetes Mother No problems noted. Social History Household Members Other:: , 2 daughters 18, 17, works for [employer] company Housing: Apartment Patient Tobacco Use Status: Current everyday Tobacco user Cigarettes Per Day: 20 e-Cigarette/Vaping Use: Never Used Current occupational status: employed Cognitive needs: No Hearing needs: No Vision needs: Yes Review of Systems Const All systems reviewed & are unremarkable except as noted in HPI and below Physical Exam Vital Signs: Last Vital Signs Pulse 101 H 12/28/24 08:08 BP 140/80 H 12/28/24 08:08 Pulse Ox 98 12/28/24 08:08 Oxygen Delivery Method Room Air 12/28/24 08:08 BMI result Body Mass Index 32.6 Const General: no acute distress and poor hygiene; No comfortable Nutritional Appearance: overweight Orientation/consciousness: patient oriented x3 Neuro General: patient oriented x3, gait normal and moves all extremities Extrem Right lower extremity: ankle Details: swelling Details: diffusely, edema Details: non-pitting and normal ROM and foot Details: tenderness, toes with normal ROM and edema (The whole foot and Ankle) Assessment & Plan Assessment & Plan (1) Chronic gout of right foot: Code(s): M1A.0710 - Idiopathic chronic gout, right ankle and foot, without tophus (tophi) Qualifiers: Gout etiology: other secondary cause Presence of tophus: without tophus Qualified Code(s): M1A.4710 - Other secondary chronic gout, right ankle and foot, without tophus (tophi) Plan: Ordered Indomethacin Discussed briefly Sobriety (declined help). F/U with PCP. Medications: Refilled indomethacin administer with food or milk 50 mg PO BID 30 caps 1RF Coding Level of Care Code Est Pt Level 4 (88016) Diagnoses Other secondary chronic gout of right foot without tophus M1A.4710 Gout etiology: other secondary cause Presence of tophus: without tophus Time Spent (min) 20
[2024-12-28 08:08] VITALS: BP 140/80; PULSE 101; O2SAT 98; BMI 32.6
== END 2024-12-28 08:18 | disposition home or self-care (01) ==
PROVIDERS: PCP Internal Medicine; Visit Provider Nurse Practitioner Family
DX: M1A.4710 Other secondary chronic gout, right ankle and foot, without tophus (tophi) (principal)

== ENCOUNTER → 2024-12-28 08:00 | Outpatient (BNVA) | payer OTHER, SELFPAY | PROVIDERS: PCP Internal Medicine; Visit Provider Nurse Practitioner Family ==

== ENCOUNTER 2025-01-31 14:01 | Outpatient (AMB) | payer OTHER, SELFPAY ==
[2025-01-31 14:03] VITALS: BP 122/80; PULSE 108; TEMP 36.8; O2SAT 98; BMI 32.8
--- NOTE | 2025-01-31 14:03 | MHC.PC.OV ---
Vital Signs 01/31/25 14:03 Height 5 ft 11 in Weight 235 lb BMI 32.8 BP 122/80 Blood Pressure Location Rt brachial Position Sitting Pulse 108 H Pulse Source Pulse Oximeter Temp 98.2 F Temp Source Oral Pulse Oximetry (%) 98 Oxygen Delivery Method Room Air Intake Visit Reasons: Followup gout, r/s from 01/18 Intake Note: Pt is here today for a follow up visit on gout. Allergies No Known Allergies Allergy (Verified 01/31/25 14:06) Medication List - Last Reconciled 01/31/25 by Prisca Sanchez MD allopurinol 300 mg PO DAILY indomethacin 50 mg PO BID Tobacco use date assessed: 01/31/25 Dental Screening Dental Screen Date: 01/31/25 Did you have a dental visit in the last 12 months?: No Did you have a dental problem in the last 6 months where you did not have access to dental care?: No Was dental information given to patient?: Patient declined HPI Followup gout, r/s from 01/18 HPI Details Patient presents for the follow-up of walk and visit for recurrent acute gout. Patient took indomethacin and the symptoms resolved patient has a history of recurrent gout and hyperuricemia. He has been drinking 2 glasses of vodka 3 times a week and eating a lot of fast foods. [facility] Medical History (Updated 01/31/25 @ 14:26 by Prisca Sanchez MD) Tooth decay History of crack cocaine use Annual physical exam Hyperlipemia Gout Otitis media Family History Father Diabetes Mother No problems noted. Social History Household Members Other:: , 2 daughters 18, 17, works for [employer] Housing: Apartment Patient Tobacco Use Status: Current everyday Tobacco user Cigarettes Per Day: 20 e-Cigarette/Vaping Use: Never Used service: No Current occupational status: employed Cognitive needs: No Hearing needs: No Vision needs: Yes Questionnaire PHQ-9 Over the last 2 weeks, how often have you been bothered by any of the following problems? 1. Little interest or pleasure in doing things: not at all 2. Feeling down, depressed, or hopeless: not at all 3. Trouble falling or staying asleep, or sleeping too much: not at all 4. Feeling tired or having little energy: not at all 5. Poor appetite or overeating: not at all 6. Feeling bad about yourself - or that you are a failure or have let yourself or your family down: not at all 7. Trouble concentrating on things, such as reading the newspaper or watching television: not at all 8. Moving or speaking so slowly that other people could have noticed. Or the opposite - being so fidgety or restless that you have been moving around a lot more than usual: not at all 9. Thoughts that you would be better off or of hurting yourself in some way: not at all Total score: 0 Depression Screening Interpretation: Negative Depression Screening Done: Yes 95909 - PHQ-9 Billing: Yes Source: Developed by Drs. Jose Ramon Pinon, Daphne Dixon, Trever Han and colleagues, with an educational shakila from [employer]. Thrive Questionnaire Date Thrive assessed: 01/31/25 I am a: Patient What is your living situation today?: I have a steady place to live Within the past 12 months, did the food you bought not last and you didn't have the money to get more?: Never true Within the past 12 months, did you worry whether your food would run out before you got money to buy more?: I choose not to answer this question Do you have trouble paying for medicines?: No Do you have trouble getting transportation to medical appointments?: No Do you have trouble paying your heating and electricity bill?: No Do you have trouble taking care of your child, family member or friend?: No Do you have trouble with day-to-day activities such as bathing, preparing meals, shopping, managing finances, etc.?: No Are you currently unemployed and looking for a job?: No Are you interested in more education?: No Please select the resources that you would like help with: None Currently or been in a relationship where the following occur: I choose not to answer THRIVE Score: 0 AUDIT C Alcohol Use Questionnaire (AUDIT-C) 1. How often do you have a drink containing alcohol?: 2-3 times a week 2. How many drinks containing alcohol do you have on a typical day when you are drinking?: 1 or 2 3. How often do you have six or more drinks on one occasion?: Never Total Score: 3 OTF-7 AMB Questionnaire OTF-7 Date OTF - 7 assessed: 01/31/25 Feeling nervous, anxious, or on edge: 0 = Not at all Not being able to stop or control worryin = Not at all Worrying too much about different things: 0 = Not at all Trouble relaxin = Not at all Being so restless that it is hard to sit still: 0 = Not at all Becoming easily annoyed or irritable: 0 = Not at all Feeling afraid as if something awful might happen: 0 = Not at all Total OTF-7 score (0-4 normal; 5-9 mild; 10-14 moderate; 15-21 severe): 0 Source: Developed by Drs. Jose Ramon Pinon, Daphne Dixon, Trever Han and colleagues, with an educational shakila from [employer]. OTF-7 Assessment Billing OTF-7 Assessment Tool: OTF-7 Assessment 48729 Review of Systems Const All systems reviewed & are unremarkable except as noted in HPI and below Eyes Reports no additional complaints ENT Reports no additional complaints Card Reports no additional complaints Resp Reports no additional complaints GI Reports no additional complaints Reports no additional complaints Physical exam (Primary Care) Vital Signs: Last Vital Signs Temp 98.2 F 01/31/25 14:03 Pulse 108 H 01/31/25 14:03 BP 122/80 01/31/25 14:03 Pulse Ox 98 01/31/25 14:03 Oxygen Delivery Method Room Air 01/31/25 14:03 BMI result Body Mass Index 32.8 Tobacco/Smoking Status: Tobacco use Status Tobacco use date assessed 01/31/25 01/31/25 14:09 Patient Tobacco Use Status Current everyday Tobacco 01/31/25 14:09 e-Cigarette/Vaping Use Never Used 01/31/25 14:09 PHQ-9: PHQ-9 Score PHQ-9: Total score 0 01/31/25 14:09 Depression Screening Interpretation: Negative Thrive Assessment: Date of Thrive Assessment Date Thrive assessed 01/31/25 01/31/25 14:09 Currently or been in a relationship where the following occur: I choose not to answer Const General: no acute distress Resp Effort & Inspection: normal respiratory effort Auscultation: clear to auscultation bilaterally Cardio Rhythm: regular rhythm Heart sounds: S1 normal heart sound present and S2 normal heart sound present GI Inspection: Yes normal to inspection Palpation (GI): Soft to palpation Coding Level of Care Code Est Pt Level 3 (49659) Diagnoses Hyperlipemia E78.5 Gout M10.9 Encounter type: subsequent encounter Gout site: foot Laterality: right Presence of tophus: without tophus Tooth decay K02.9 Additional Codes OTF-7 Assessment Billing - OTF-7 Assessment Tool: OTF-7 Assessment 56080 ([id number]) PHQ-9 - 65546 - PHQ-9 Billing: Yes ([id number]) Assessment & Plan Assessment & Plan (1) Hyperlipemia: Code(s): E78.5 - Hyperlipidemia, unspecified Category: Medical Plan: Low-cholesterol diet regular physical activity discussed with the patient he will return for physical in 3 months with a fasting labs before (2) Gout: Code(s): M10.9 - Gout, unspecified Category: Medical Qualifiers: Encounter type: subsequent encounter Gout site: foot Laterality: right Presence of tophus: without tophus Plan: Low purine diet discussed with the patient. He will start allopurinol 300 mg daily check uric acid in 3 months. Patient will take indomethacin for gout flareup (3) Tooth decay: Code(s): K02.9 - Dental caries, unspecified Category: Medical Plan: pt was advised to schedule an appointment with a dentist Orders: Orders Lipid Panel 3 Months E78.5 - Hyperlipidemia, unspecified, M10.9 - Gout, unspecified, Z00.00 - Encounter for general adult medical examination without abnormal findings Comprehensive [place]. Panel Fast 3 Months E78.5 - Hyperlipidemia, unspecified, M10.9 - Gout, unspecified, Z00.00 - Encounter for general adult medical examination without abnormal findings Complete Blood Count Auto Diff 3 Months E78.5 - Hyperlipidemia, unspecified, M10.9 - Gout, unspecified, Z00.00 - Encounter for general adult medical examination without abnormal findings Uric Acid 3 Months E78.5 - Hyperlipidemia, unspecified, M10.9 - Gout, unspecified, Z00.00 - Encounter for general adult medical examination without abnormal findings UA w Microscopic 3 Months E78.5 - Hyperlipidemia, unspecified, M10.9 - Gout, unspecified, Z00.00 - Encounter for general adult medical examination without abnormal findings
== END 2025-01-31 14:23 | disposition home or self-care (01) ==
LOC: HO.HMCC 14:02
PROVIDERS: PCP Internal Medicine; Visit Provider Internal Medicine
DX: E78.5 Hyperlipidemia, unspecified (principal); M10.9 Gout, unspecified; K02.9 Dental caries, unspecified

== ENCOUNTER → 2025-01-31 14:01 | Outpatient (BNVA) | payer OTHER, SELFPAY | PROVIDERS: PCP Internal Medicine; Visit Provider Internal Medicine | DX: M10.9 Gout, unspecified (principal); K02.9 Dental caries, unspecified; E78.5 Hyperlipidemia, unspecified | CPT/HCPCS: 96127 ==

== ENCOUNTER 2025-03-08 07:50 | Outpatient (AMB) | payer OTHER, SELFPAY ==
[2025-03-08 07:51] VITALS: BP 160/94; PULSE 95; TEMP 36.7; O2SAT 97; BMI 33.1
--- NOTE | 2025-03-08 07:51 | AM.OFFWIN_ITS ---
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 Reports bright Red Blood dripping from his Right Nostril. He does c/o Headaches, but denies dizziness, blurry vision, nausea or vomiting. Pt has an elevated Blood Pressure reading today associated with Headaches. Denies CP, SOB, Palpitations. Denies h/o HTN. He does admit to drinking Vodka 3 times a week, but has not had a drink in a week. He does an appointment with his PCP in Apr 2025. [facility] Medical History (Updated 03/08/25 @ 08:11 by Tanika Herrera NP) Epistaxis Elevated blood pressure reading in office without diagnosis of hypertension Tooth decay History of crack cocaine use Annual physical exam Hyperlipemia Gout Otitis media Family History Father Diabetes Mother No problems noted. Social History Household Members Other:: , 2 daughters 18, 17, works for [employer] Housing: Apartment Patient Tobacco Use Status: Current everyday Tobacco user Cigarettes Per Day: 20 e-Cigarette/Vaping Use: Never Used service: No Current occupational status: employed Cognitive needs: No Hearing needs: No Vision needs: Yes Review of Systems Const All systems reviewed & are unremarkable except as noted in HPI and below Physical Exam Vital Signs: Last Vital Signs Temp 98.1 F 03/08/25 07:51 Pulse 95 07/31/25 07:51 BP 160/94 H 07/31/25 07:51 Pulse Ox 97 03/08/25 07:51 Oxygen Delivery Method Room Air 03/08/25 07:51 BMI result Body Mass Index 33.1 Const General: no acute distress, anxious and poor hygiene Nutritional Appearance: overweight Orientation/consciousness: patient oriented x3 HEENT Head: Yes normocephalic Ears: external ears normal and TM's normal bilaterally General nose exam: Normal external nose present, Abnormal mucous membranes and turbinates present (Presence of Red Blood) erythematous bilateral and Epistaxis present on the right Face and sinus: Yes normal facial exam Mouth: moist mucous membranes Throat: Yes uvula midline Resp Effort & Inspection: normal respiratory effort Auscultation: clear to auscultation bilaterally, no crackles, no rales, no rhonchi and no wheezes Cardio Heart sounds: S1 normal heart sound present and S2 normal heart sound present Neuro General: patient oriented x3 Assessment & Plan Assessment & Plan (1) Epistaxis: Code(s): R04.0 - Epistaxis Plan: Ordered Afrin Nasal [place] for 3 days. Advised to use Nasal Saline Sprays. Advised to Tilt head back and Apply Ice pack to the Nasal Bridge. ??Could be related to the elevated B/P. (2) Elevated blood pressure reading in office without diagnosis of hypertension: Code(s): R03.0 - Elevated blood-pressure reading, without diagnosis of hypertension Plan: Advised To continue to monitor B/P at home BID and Keep a Log. Advised lifestyle changes; weight loss, stop drinking, avoid foods high in Sodium RTC if bleeding continues and B/P elevated. Medications: New oxymetazoline 0.05% (Afrin (oxymetazoline)) 2 sprays intranasal BID 22 mL 0RF nasal congestion and Bleeding 3 days R04.0 - Epistaxis Coding Level of Care Code Est Pt Level 4 (24959) Diagnoses Epistaxis R04.0 Elevated blood pressure reading in office without diagnosis of hypertension R03.0 Time Spent (min) 20
[2025-03-08 08:12] VITALS: BP 140/90
== END 2025-03-08 08:42 | disposition home or self-care (01) ==
PROVIDERS: PCP Internal Medicine; Visit Provider Nurse Practitioner Family
DX: R04.0 Epistaxis (principal); R03.0 Elevated blood-pressure reading, without diagnosis of hypertension